=== PATIENT | male | born 1975 | race African-American/Black ===

== ENCOUNTER 2018-06-28 09:40 | Emergency (ER) | payer MEDICARE, MEDICAID ==
[2018-06-28 09:54] VITALS: BP 146/76
--- NOTE | 2018-06-28 10:25 | UC ---
Ear Complaint HPI - HPI Summary HPI Summary: Plugged left ear, no pain no recent cold symptoms - History of Current Complaint Chief Complaint: UCEar Stated Complaint: EAR ACHE Time Seen by Provider: 06/28/18 10:09 Hx Obtained From: Patient Onset/Duration: Gradual Onset Severity Initially: Mild Severity Currently: Mild Pain Intensity: 0 Aggravating Factors: Nothing Alleviating Factors: Nothing Associated Signs/Symptoms: Positive: Hearing Loss. Negative: URI Symptoms - Allergies/Home Medications Allergies/Adverse Reactions: Allergies Allergy/AdvReac Type Severity Reaction Status Date / Time No Known Allergies Allergy Verified 06/28/18 09:55 Home Medications: Home Medications NK [No Home Medications Reported] 06/28/18 [History Confirmed 06/28/18] PMH/Surg Hx/FS Hx/Imm Hx Previously Healthy: Yes - Surgical History Surgical History: None - Social History Alcohol Use: Occasionally Substance Use Type: Marijuana Smoking Status (MU): Never Smoked Tobacco Review of Systems All Other Systems Reviewed And Are Negative: Yes Constitutional: Positive: Negative Skin: Positive: Negative Eyes: Positive: Negative ENT: Positive: Other - [place] hearing in left ear, thinks he has wax build up. Instilled H2O2 without relief Respiratory: Positive: Negative Cardiovascular: Positive: Negative Gastrointestinal: Positive: Negative Genitourinary: Positive: Negative Motor: Positive: Negative Neurovascular: Positive: Negative Musculoskeletal: Positive: Negative Neurological: Positive: Negative Psychological: Positive: Negative Is Patient Immunocompromised?: No Physical Exam Triage Information Reviewed: Yes Appearance: Well-Appearing, No Pain Distress, Well-Nourished Vital Signs: Initial Vital Signs Temp 98.3 F 06/28/18 09:52 Pulse 74 06/28/18 09:52 Resp 16 06/28/18 09:52 BP 146/76 06/28/18 09:52 Pulse Ox 100 06/28/18 09:52 Vital Signs Reviewed: Yes Eye Exam: Normal ENT: Positive: Other - Cerumen impaction left ear, right ear with mild impaction. Neurological: Positive: Alert Psychological Exam: Normal Ear Complaint Course/Dx - Course Course Of Treatment: Pt wanted me to attempt to remove cerumen impaction. I was able to remove successfully from both ears with a lighted curette. Both TM's are pearly garcia with good landmarks and light reflex. Ear canal ia atraumatic follow procedure. Pt tolerated procedue well - Differential Dx/Diagnosis Differential Diagnosis/HQI/PQRI: Cerumen Impaction Provider Diagnosis: Bilateral impacted cerumen Discharge - Sign-Out/Discharge Documenting (check all that apply): Patient Departure All imaging exams completed and their final reports reviewed: No Studies - Discharge Plan Condition: Good Disposition: HOME Patient Education Materials: Cerumen Impaction (ED) Referrals: No Primary Care Phys,NOPCP [Primary Care Provider] - Additional Instructions: Instill ear wax softening drops once a month to prevent wax build up. - Billing Disposition and Condition Condition: GOOD Disposition: Home
== END 2018-06-28 10:39 | disposition home or self-care (01) ==
LOC: UCEAST 09:40
DX: H61.23 Impacted cerumen, bilateral (principal)
CPT/HCPCS: 69210; 99201; G0463